=== PATIENT | female | born 1965 | race Caucasian/White ===

== ENCOUNTER → 2017-10-28 | Outpatient (CLI) | payer OTHER ==
[~2017-10-28] MED LIST: ALBU90OI INH; AMOCLA875 PO; CHOL10002 PO; CLON.1; CLON.2 PO; ESCI10; GLIP5 PO; HYDACE5325 PO; LOSA25; METFORMIN HCL1000 MG PO; METO50ER; NEBI5 PO; OLME20; OLME20 PO; PRAV10 PO; Pravachol40 MG PO; TRAM50 PO
== END | disposition home or self-care (01) ==
LOC: LAB 00:45 → LAB SHORT 00:45 → LAB FUT 10-13 10:15 → EDSTATUS 10-13 10:15
DX: R19.7 Diarrhea, unspecified (principal)
CPT/HCPCS: 87177; 87209

== ENCOUNTER 2020-11-18 17:15 | Emergency (ER) | payer OTHER ==
[~2020-11-18] VITALS: Ht 167.6 cm; Wt 77.1 kg
[~2020-11-18 17:15] MED LIST changes: +Cyclobenzaprine5 MG PO
== END 2020-11-18 18:07 | disposition home or self-care (01) ==
LOC: ER 17:15
DX: Z23 Encounter for immunization (principal); I10 Essential (primary) hypertension; E11.9 Type 2 diabetes mellitus without complications; E78.5 Hyperlipidemia, unspecified; F17.210 Nicotine dependence, cigarettes, uncomplicated; Z88.2 Allergy status to sulfonamides; Z79.899 Other long term (current) drug therapy; Z79.84 Long term (current) use of oral hypoglycemic drugs
CPT/HCPCS: 90471; 99282-25

== ENCOUNTER 2020-11-21 12:27 | Emergency (ER) | payer OTHER ==
[~2020-11-21] VITALS: Ht 167.6 cm; Wt 77.1 kg
== END 2020-11-21 12:58 | disposition home or self-care (01) ==
LOC: ER 12:27
DX: Z23 Encounter for immunization (principal); I10 Essential (primary) hypertension; E11.9 Type 2 diabetes mellitus without complications; Z88.2 Allergy status to sulfonamides; Z79.84 Long term (current) use of oral hypoglycemic drugs; Z79.899 Other long term (current) drug therapy; T14.8XXD Other injury of unspecified body region, subsequent encounter; W55.81XD Bitten by other mammals, subsequent encounter
CPT/HCPCS: 90471; 99281

== ENCOUNTER 2021-12-23 21:03 | Inpatient (IN) | payer OTHER ==
[~2021-12-23] VITALS: Ht 167.6 cm; Wt 102.8 kg
[~2021-12-23 21:03] MED LIST changes: +CATAPRES0.1 MG PO; -CHOL10002 PO; -CLON.2 PO; +GLIP10 PO; -GLIP5 PO; -LOSA25; +LOSA50 PO; +PRAVASTATIN SOD40 MG PO; -Pravachol40 MG PO; +VITAMIN D31000 UNI1 PO
[2021-12-23 21:42] LABS: BASOPHILS ABSOLUTE AUTO 0.06 K/mm3 (0.00-0.23); BASOPHILS PERCENT AUTO 1 % (0-2); EOSINOPHILS ABSOLUTE AUTO 0.11 K/mm3 (0.00-0.68); EOSINOPHILS PERCENT AUTO 1 % (0-6); Hematocrit 47.8 % (33.0-51.0); Hemoglobin 16.7 g/dL (11.5-16.0); IMMATURE GRAN ABSOLUTE AUTO 0.11 K/mm3 (0.00-0.10); IMMATURE GRAN PERCENT AUTO 1 % (0-1); LYMPHOCYTES ABSOLUTE AUTO 3.76 K/mm3 (0.84-5.20); LYMPHOCYTES PERCENT AUTO 31 % (21-46); MONOCYTES ABSOLUTE AUTO 0.54 K/mm3 (0.16-1.47); MONOCYTES PERCENT AUTO 5 % (4-13); Mean Corpuscular HGB Conc 34.9 g/dL (31.5-36.5); Mean Corpuscular Volume 92 fL (80-100); Mean Platelet Volume 9.7 fL (9.1-12.4); NEUTROPHILS PERCENT AUTO 62 % (41-73); Platelet Count 265 K/mm3 (150-400); RDW Coefficient Variation 12.2 % (11.7-14.2); RDW Standard Deviation 41.2 fL (35.1-46.3); Red Blood Cell Count 5.22 M/mm3 (3.80-5.20); White Blood Cell Count 12.08 K/mm3 (4.00-11.30)
[2021-12-23 22:24] LABS: Albumin, Blood 3.5 g/dL (3.4-5.0); Bilirubin, Total 0.7 mg/dL (0.1-1.0); Bun/Creatinine Ratio 13.1 (12.0-20.0); Calcium, Blood 9.1 mg/dL (8.5-10.1); Creatinine, Blood 0.76 mg/dL (0.40-1.00); Globulin, Blood 3.6 g/dL (2.2-4.0); Potassium, Blood 4.4 mmol/L (3.5-5.5); Total Protein, Blood 7.1 g/dL (6.4-8.2)
[2021-12-23] MEDS ORDERED: INSULIN GL100 UNIT/2 SC (23:41)
[2021-12-24 00:49] LABS: BASOPHILS ABSOLUTE AUTO 0.12 K/mm3 (0.00-0.23); BASOPHILS PERCENT AUTO 1 % (0-2); EOSINOPHILS ABSOLUTE AUTO 0.09 K/mm3 (0.00-0.68); EOSINOPHILS PERCENT AUTO 1 % (0-6); Hematocrit 48.1 % (33.0-51.0); Hemoglobin 16.7 g/dL (11.5-16.0); IMMATURE GRAN ABSOLUTE AUTO 0.14 K/mm3 (0.00-0.10); IMMATURE GRAN PERCENT AUTO 1 % (0-1); LYMPHOCYTES ABSOLUTE AUTO 3.01 K/mm3 (0.84-5.20); LYMPHOCYTES PERCENT AUTO 20 % (21-46); MONOCYTES ABSOLUTE AUTO 0.76 K/mm3 (0.16-1.47); MONOCYTES PERCENT AUTO 5 % (4-13); Mean Corpuscular HGB 31.9 pg (26.0-34.0); Mean Corpuscular HGB Conc 34.7 g/dL (31.5-36.5); Mean Corpuscular Volume 92 fL (80-100); Mean Platelet Volume 9.9 fL (9.1-12.4); NEUTROPHILS ABSOLUTE AUTO 10.81 K/mm3 (1.96-9.15); NEUTROPHILS PERCENT AUTO 72 % (41-73); Platelet Count 275 K/mm3 (150-400); RDW Coefficient Variation 12.1 % (11.7-14.2); RDW Standard Deviation 41.3 fL (35.1-46.3); Red Blood Cell Count 5.24 M/mm3 (3.80-5.20); White Blood Cell Count 14.93 K/mm3 (4.00-11.30)
[2021-12-24 01:22] LABS: Albumin, Blood 3.5 g/dL (3.4-5.0); Bilirubin, Total 0.7 mg/dL (0.1-1.0); Bun/Creatinine Ratio 15.5 (12.0-20.0); Calcium, Blood 10.1 mg/dL (8.5-10.1); Creatinine, Blood 0.65 mg/dL (0.40-1.00); Globulin, Blood 3.6 g/dL (2.2-4.0); Potassium, Blood 4.2 mmol/L (3.5-5.5); Total Protein, Blood 7.1 g/dL (6.4-8.2)
[2021-12-24 01:57] LABS: D-Dimer, Quantitative 0.69 mg/L FEU (0.00-0.52)
[2021-12-24 05:00] LABS: Anti-Xa UFH, PHA Monitoring <0.10 IU/mL; International Normalized Ratio 0.98; Prothrombin Time Results 10.3 Sec (9.7-11.5)
--- NOTE | 2021-12-24 05:45 | NUR ---
PATIENT ARRIVED TO ROOM 338 FROM ER WITH C/O SEVERE BURNING IN MID STERNAL, EPIGASTRIC AREA AND DOWN RIGHT ARM TO HAND NOT IMPROVED WITH FENTANYL, DILAUDID OR NITROGLYCERIN. WITHIN ONE HOUR OF HER ARRIVAL, PATIENTS PAIN WAS INTO HER JAW AND ALSO FELT LIKE A KNIVE THROUGH HER BACK TO HER CHEST. HOSPITALIST WAS NOTIFIED, AND STAT EKG WAS COMPLETED AND COPY TO HOSPITALIST TO INTERPRET. 02 AT 2L VIA NASAL CANULLA PLACED FOR COMFORT. AFTER RECEIVING NEW EKG AND CONCERNS REGARDING HTN (ACTUALLY INCREASED AFTER IV HYDRALAZINE) AND ESCALATING CHEST PAIN, PATIENT WAS TRANSFERRED TO PCU ROOM 18. REPORT TO MERARI CORREA WHO WOULD RECEIVE PATIENT IN PCU
--- NOTE | 2021-12-24 06:20 | NUR ---
PT. ARRIVED AROUND 0530 THIS MORNING WITH CHEST PAIN AND HYPERTENSION. BP MEDS AND NITRO WERE GIVEN PER EMAR AND A HEPARIN BOLUS WAS STARTED. PT. IS ON 2L NC FOR COMFORT AND IS SATTING IN THE HIGH 90S. PT. WAS UP TO COMMODE AND ABLE TO VOID ON HER OWN WITH STANDBY ASSISTANCE. PT.'S ONLY COMPLAINT AT THIS TIME IS PAIN WHICH IS BEING TREATED WITH PRNS PER THE MAR.
--- NOTE | 2021-12-24 08:15 | NUR ---
CARE NOTE DR. TOMLINSON AT BEDSIDE, VERBAL INSTRUCTIONS GIVEN TO TURN HEPARIN DRIP OFF. HEPARIN TURNED OFF AT 0815.
[2021-12-24 09:10] LABS: Creatine Kinase MB 28.7 ng/mL (0.0-3.6); Creatine Kinase MB Index 8.8 (0.0-4.0)
--- NOTE | 2021-12-24 12:44 | NUR ---
CARE NOTE PT BACK FROM VP DIRECTOR OF FINANCE APPROX. 1200. SHE CONTINUED TO REPORT PAIN 8/10 IN CHEST, BACK AND HEAD. WHEN THIS NURSE WOULD LEAVE THE ROOM, PT APPEARED TO BE SLEEPING. SHE WAS ABLE TO USE BEDSIDE COMMODE TO VOID AND APPEARED UNSTEADY ON HER FEET. SHE IS NOW IN RECLINER CHAIR TO FACILITATE RELIEF OF PAIN IN BACK, HEATING PAD ALSO PLACED IN BACK AREA, ALSO SEE EMAR FOR PAIN MANAGEMENT. RIGHT RADIAL SITE ACCESSED, NO APPARENT BLEEDING, TR BAND IN PLACE W/ 10ML OF AIR. WILL CONTINUE TO MONITOR.
--- NOTE | 2021-12-24 12:55 | NUR ---
CARE NOTE WHEN PT ASKED REGARDING LEVEL OF PAIN SHE KEEPS STATING "I DON'T KNOW." PT COMPLAINED ABOUT BEING COLD, WARM BLANKET GIVEN BY THIS RN AND PT THEN COMPLAINED OF BEING TOO HOT. CALL LIGHT IN REACH. WILL CONTINUE TO MONITOR.
--- NOTE | 2021-12-24 13:25 | NUR ---
CARE NOTE PT NOW APPEARS TO BE SLEEPING COMFORTABLY IN RECLINER CHAIR. VSS, 1L VIA NC APPLIED PER PT REQUEST. SHE STATED "I FEEL LIKE I CAN'T GET AIR." ON RA SPO2 98%, 99% VIA 1L NC. CALL LIGHT IS WITHIN REACH.
--- NOTE | 2021-12-24 19:21 | NUR ---
SHIFT SUMMARY PT ALERT AND ORIENTED X 4. VSS, SPO2>95% VIA ROOM AIR. [facility], PT COMPLAINED OF NAUSEA AND PAIN 10/10. POST [facility] PT HAS DENIED FEELINGS OF NAUSEA BUT STILL REPORTS CHEST/BACK PAIN 5/10. SHE HAS DIFFICULTY DESCRIBING PAIN. AFTER TYLENOL ADMINISTRATION, PT APPEARED MORE COMFORTABLE AND APPEARED TO BE ASLEEP. TR BAND REMOVED APPROX. 1535 W/ NO APPARENT SIGNS OF BLEEDING. SHE HAS BEEN ABLE TO AMBULATE TO BATHROOM W/ 1 PERSON SBA. IV IN L WRIST AND R FOREARM ARE SALINE LOCKED. SIGNIFICANT OTHER JO WAS AT BEDSIDE AFTER PT RETURNED FROM [facility]. NO OTHER ACUTE CHANGES NOTED. REPORT GIVEN TO DENISE GAGE.
--- NOTE | 2021-12-25 06:07 | NUR ---
SHIFT SUMMARY: PATIENT'S ANGIO SITE C/D/I - PATIENT KEPT ARM BOARD IN PLACE T/O NIGHT BUT IS NOW REQUESTING IT BE REMOVED. AT THIS TIME ARMBOARD IS IN PLACE. PATIENT IS VERY INDEPENDENT AND HAS ENGAGED IN ACTIVITIES - EG, WALKING TO RECLINER W/O NOTICE OR CALL LIGHT IN REACH - OF HER OWN VOLITION. PATIENT HAS MADE SEVERAL COMMENTS THAT THERE IS A LOT OF STRESS AT HOME BUT ALSO WANTS TO GO HOME. PATIENT HYPERTENSIVE AT TIMES, O2 STABLE ON RA, AFEBRILE (THOUGH PATIENT STATES >97* IS A FEVER FOR HER), HR 55-60S. MEDICATED PER EMAR. PATIENT WAS MILDLY DIZZY AT BEGINNING OF SHIFT WHEN SITTING UP BUT IS NOW STEADY ON HER FEET AND DENIES DIZZINESS. WILL CONTINUE TO MONITOR AND REPORT TO ONCOMING RN.
[2021-12-25 09:26] LABS: BASOPHILS ABSOLUTE AUTO 0.05 K/mm3 (0.00-0.23); BASOPHILS PERCENT AUTO 0 % (0-2); EOSINOPHILS ABSOLUTE AUTO 0.01 K/mm3 (0.00-0.68); EOSINOPHILS PERCENT AUTO 0 % (0-6); Hematocrit 48.1 % (33.0-51.0); Hemoglobin 16.5 g/dL (11.5-16.0); IMMATURE GRAN ABSOLUTE AUTO 0.11 K/mm3 (0.00-0.10); IMMATURE GRAN PERCENT AUTO 1 % (0-1); LYMPHOCYTES ABSOLUTE AUTO 2.46 K/mm3 (0.84-5.20); LYMPHOCYTES PERCENT AUTO 16 % (21-46); MONOCYTES ABSOLUTE AUTO 0.94 K/mm3 (0.16-1.47); MONOCYTES PERCENT AUTO 6 % (4-13); Mean Corpuscular HGB 31.5 pg (26.0-34.0); Mean Corpuscular HGB Conc 34.3 g/dL (31.5-36.5); Mean Corpuscular Volume 92 fL (80-100); Mean Platelet Volume 9.7 fL (9.1-12.4); NEUTROPHILS ABSOLUTE AUTO 11.62 K/mm3 (1.96-9.15); NEUTROPHILS PERCENT AUTO 77 % (41-73); Platelet Count 257 K/mm3 (150-400); RDW Coefficient Variation 12.2 % (11.7-14.2); RDW Standard Deviation 41.1 fL (35.1-46.3); Red Blood Cell Count 5.23 M/mm3 (3.80-5.20); White Blood Cell Count 15.19 K/mm3 (4.00-11.30)
[2021-12-25 09:43] LABS: Bun/Creatinine Ratio 10.5 (12.0-20.0); Calcium, Blood 8.5 mg/dL (8.5-10.1); Creatinine, Blood 0.67 mg/dL (0.40-1.00); Potassium, Blood 3.7 mmol/L (3.5-5.5)
[2021-12-25] MEDS ORDERED: CATAPRES0.1 MG PO (15:00)
[2021-12-25] MEDS ORDERED: ATOR80 PO (15:01)
[2021-12-25] MEDS ORDERED: ASPI81CH PO (15:01)
[2021-12-25] MEDS ORDERED: Carvedilol12.5 MG PO (15:01)
[2021-12-25] MEDS ORDERED: CLOP75 PO (15:02)
--- NOTE | 2021-12-25 16:03 | NUR ---
DISCHARGE NOTE: PATIENT AND PATIENTS WERE EDUCATED ON DISCHARGE INSTRUCTIONS. AFTER EXTENSIVE EXPLANATION OF INSTRUCTIONS PATIENT AND PATIENTS HAD NO FURTHER QUESTIONS AT THIS TIME. PATIENTS NEW PERSCRIPTIONS WERE FAXED TO HER PREFERRED PHARMACY [facility]. BOTH IV'S WERE TAKEN OUT AND WNL. HER RADIAL SITE ON HER RIGHT WRIST HAS TEGADERM WITH A ARM BOARD ON TOP THAT ARE C/D/I. DENIED NUMBNESS OR TINGLING IN ALL EXTREMITIES. PATIENT ALSO DENIED CHEST PAIN OR SOB. PATIENT IS TOLERATING PO INTAKE AND IS VOIDING/PASSING GAS. SHE IS DRESSED AND HAS PERSONAL ITEMS IN THE ROOM GATHERED. STENT PLACEMENT CARD/INFORMATION WERE ALSO PLACED IN THE INSTRUCTIONS FOLDER BY THE . PATIENT WAS WHEELCHAIRED OUT TO HER HUSBANDS CAR TO BE TAKEN HOME.
== END 2021-12-25 16:00 | disposition home or self-care (01) | DRG 247 ==
LOC: ER 21:03 → MEDS 21:04 → PCU 21:04 → MEDS 12-24 01:36 → PCU 12-24 05:15
PROVIDERS: Emergency Medicine; Family Medicine; ADMIT Internal Medicine
PROC: 4A023N7 Measurement of Cardiac Sampling and Pressure, Left Heart, Percutaneous Approach (ICD-10-PCS; principal; 2021-12-24)
PROC: 027034Z Dilation of Coronary Artery, One Artery with Drug-eluting Intraluminal Device, Percutaneous Approach (ICD-10-PCS; 2021-12-24)
PROC: B2111ZZ Fluoroscopy of Multiple Coronary Arteries using Low Osmolar Contrast (ICD-10-PCS; 2021-12-24)
PROC: B240ZZ3 Ultrasonography of Single Coronary Artery, Intravascular (ICD-10-PCS; 2021-12-24)
DX: I21.4 Non-ST elevation (NSTEMI) myocardial infarction (principal); E11.69 Type 2 diabetes mellitus with other specified complication; E66.01 Morbid (severe) obesity due to excess calories; Z88.2 Allergy status to sulfonamides; E78.5 Hyperlipidemia, unspecified; E55.9 Vitamin D deficiency, unspecified; Z79.899 Other long term (current) drug therapy; Z79.4 Long term (current) use of insulin; Z79.84 Long term (current) use of oral hypoglycemic drugs; F17.210 Nicotine dependence, cigarettes, uncomplicated; Z98.51 Tubal ligation status; Z90.49 Acquired absence of other specified parts of digestive tract; Z68.36 Body mass index [BMI] 36.0-36.9, adult; E78.00 Pure hypercholesterolemia, unspecified
CPT/HCPCS: 36415; 71046; 71260; 76937; 80048; 80053; 82550; 82553; 82947; 83880; 84484; 85025; 85347; 85379; 85520; 85610; 92978; 93005; 93010; 93306; 93454; 96372; 96374; 96375; 96376; 99152; 99153; 99285-25; A9270; C1725; C1753; C1769; C1874; C1887; C1894; C9600; G0378; J0360; J1170; J1644; J1650; J1815; J2250; J2270; J2405; J3010; J7030; J7050; Q9967